=== PATIENT | male | born 1975 | race Caucasian/White ===

== ENCOUNTER 2022-06-12 08:36 | Emergency (ER) | payer OTHER ==
[~2022-06-12] VITALS: Ht 177.8 cm; Wt 104.0 kg
[2022-06-12 08:56] VITALS: BP 151/102
[2022-06-12] MEDS ORDERED: DIPH25CA83 MT (09:26)
[2022-06-12] MEDS ORDERED: P20 MT (09:26)
[2022-06-12] MEDS ORDERED: PERM60CR4 TP (09:26)
== END 2022-06-12 10:15 | disposition home or self-care (01) ==
LOC: ER 08:36
DX: T78.40XA Allergy, unspecified, initial encounter (principal); X58.XXXA Exposure to other specified factors, initial encounter
CPT/HCPCS: 99281